=== PATIENT | female | born 1940 | race Caucasian/White ===

== ENCOUNTER 2016-09-20 08:08 | Outpatient (CLI) | payer OTHER ==
--- NOTE | 2016-09-20 09:59 | DIAGNOSTIC IMAGING REPORT ---
PROCEDURE: CT ABD/PELVIS WITH CONTRAST CLINICAL INDICATION: LLQ PAIN TECHNIQUE: 125 ml of Isovue 300 were injected intravenously and axial images were obtained of the entire abdomen and pelvis with sagittal and coronal reformations. COMPARISON: CT abdomen/pelvis 09/28/2009. FINDINGS: ABDOMEN: Lung base are clear. Normal heart size. Bilateral breast implants. Cholecystectomy. Liver, pancreas, spleen, adrenal glands and kidneys are normal. Mild atherosclerosis of the aorta. Nonspecific bowel gas pattern. There is some thickening of the gastric antrum which may represent gastritis. Small hiatal hernia. PELVIS: Normal appendix. Moderate sigmoid diverticulosis without inflammatory changes. Hysterectomy. Normal bladder. No pelvic mass or free fluid. 1 cm fat filled umbilical hernia. Moderate degenerative changes of the spine. IMPRESSION: 1. Moderate sigmoid diverticulosis but no evidence of diverticulitis 2. Gastric antrum thickening which may indicate gastritis. Correlate clinically 3. Hiatal hernia 4. Cholecystectomy and hysterectomy All CT scans at this facility use dose modulation, iterative reconstruction, and/or weight-based dosing when appropriate to reduce radiation dose to as low as reasonably achievable.
[2016-10-11] MEDS ORDERED: ALEVE220 MG PO (12:02)
[2016-10-11] MEDS ORDERED: ASPIRIN ADULT L81 M1 PO (12:02)
[2016-10-11] MEDS ORDERED: OMEPRAZOLE20 M1 PO (12:03)
[2016-10-11] MEDS ORDERED: ANASTROZOLE1 MG PO (12:03)
[2016-10-11] MEDS ORDERED: FISH OIL1200 MG PO (12:04)
[2016-10-11] MEDS ORDERED: LEVOTHYROXINE88 MCG PO (12:07)
[2016-10-11] MEDS ORDERED: LEVOTHYROXINE75 MCG PO (12:08)
[2016-10-11] MEDS ORDERED: VITAMIN D-31000 UNIT PO (12:08)
[2016-10-11] MEDS ORDERED: PROBIOTIC PO (12:09)
== END 2016-09-20 23:00 | disposition home or self-care (01) ==
LOC: CT SRH 08:08
DX: K57.30 Diverticulosis of large intestine without perforation or abscess without bleeding (principal); K44.9 Diaphragmatic hernia without obstruction or gangrene
CPT/HCPCS: 90074; 91631; 92560